=== PATIENT | male | born 1985 | race American Indian/Alaskan Native ===

== ENCOUNTER 2020-08-26 00:05 | Emergency (ER) | payer MEDICAID ==
[~2020-08-26] VITALS: Ht 182.9 cm; Wt 81.6 kg
[2020-08-26] MEDS ORDERED: METH16TA PO (00:22)
[2020-08-26] MEDS ORDERED: HYDR-4384 PO (00:22)
[2020-08-26] MEDS ORDERED: [UNRECOGNIZED DRUG - REMARK] (00:22)
--- NOTE | 2020-08-26 00:29 | NUR ---
ADMITTED TO ER RM-2A AMBULATORY C/O LOWER BACK PAIN. DR COLEMAN WILL SEE & EVALUATE PT.
[2020-08-26] MEDS ORDERED: ONDANSETRON ODT 4 MG TAB.RAPDIS ONE (01:11)
[2020-08-26] MEDS ORDERED: HYDROMORPHONE 2 MG/1 ML DISP.SYRIN ONE (01:11)
--- NOTE | 2020-08-26 01:13 | NUR ---
Patient discharged to home in stable condition. Written and verbal after care instructions given. Patient verbalizes understanding of instructions. Stressed follow up or return to ER for worsening s/s.
[2020-08-26 01:14] VITALS: BP 142/54
[2020-08-26] MEDS ORDERED: HYDROMORPHONE 1 MG/1 ML DISP.SYRIN IM ONE (01:15)
[2020-08-26] MEDS ORDERED: ONDANSETRON ODT 4 MG TAB.RAPDIS SL ONE (01:15)
== END 2020-08-26 01:16 | disposition home or self-care (01) ==
LOC: ER 00:14
DX: M54.41 Lumbago with sciatica, right side (principal); T14.90XS Injury, unspecified, sequela; X50.0XXS Overexertion from strenuous movement or load, sequela; Z88.6 Allergy status to analgesic agent; Z88.8 Allergy status to other drugs, medicaments and biological substances; R03.0 Elevated blood-pressure reading, without diagnosis of hypertension
CPT/HCPCS: 96372; 99283; J1170; A4663; Q0162

== ENCOUNTER 2020-09-04 23:28 | Emergency (ER) | payer MEDICAID ==
[~2020-09-04] VITALS: Ht 185.4 cm; Wt 81.6 kg
[~2020-09-04 23:28] MED LIST: HYDR-4384 PO; METH16TA PO; [UNRECOGNIZED DRUG - REMARK]
--- NOTE | 2020-09-05 00:25 | NUR ---
at bedside for assessment
--- NOTE | 2020-09-05 00:42 | NUR ---
urine collected and sent to lab
[2020-09-05] MEDS ORDERED: MORPHINE SULFATE 4 MG/1 ML DISP.SYRIN ONE (00:57)
[2020-09-05] MEDS ORDERED: MORPHINE SULFATE 4 MG/1 ML DISP.SYRIN IM ONE (01:00)
[2020-09-05 01:18] LABS: *AMPHETAMINE, URINE NEGATIVE (NEGATIVE); *CANNABINOID, URINE NEGATIVE (NEGATIVE); *COCCAINE, URINE NEGATIVE (NEGATIVE); *OPIATE, URINE POSITIVE (NEGATIVE); *PHENCYCLIDINE SCREEN,URINE NEGATIVE (NEGATIVE)
--- NOTE | 2020-09-05 01:33 | NUR ---
Patient discharged to home in stable condition. patient able to ambulate in steady manner, Rx given, no signs of acute distress. Written and verbal after care instructions given. Patient verbalizes understanding of instructions. Stressed follow up or return to ER for worsening s/s.
[2020-09-05 01:36] VITALS: BP 102/86
== END 2020-09-05 01:35 | disposition home or self-care (01) ==
LOC: ER 23:30
DX: M54.40 Lumbago with sciatica, unspecified side (principal)
CPT/HCPCS: 80307; 96372; 99283; J2270